=== PATIENT | female | born 1985 ===

== ENCOUNTER 2016-07-12 00:15 | Emergency (ER) | payer OTHER, MEDICAID ==
[2016-07-12 00:28] VITALS: BP 127/81; PULSE 98; RESP 20; TEMP 98.2; O2SAT 98
[2016-07-12] MEDS ORDERED: TDAP ADULT 0.5 ML INJ (BOOSTRIX) IM ONE (00:29)
--- NOTE | 2016-07-12 00:33 | EDPHY ---
H & P Smoking Status: Heavy smoker Time Seen by Provider: 07/12/16 00:26 HPI/ROS: CHIEF COMPLAINT: Right knee laceration HISTORY OF PRESENT ILLNESS: 31-year-old female with out-of-date tetanus, works at [employer], was using a box coverer hand and sustained accidental laceration to her right lateral knee. Occurred shortly prior to arrival. No paresthesia no sensory or motor deficit. PHYSICAL EXAM (Prior to examination, patient consented to physical exam, hands were washed and my usual and customary physical exam procedures followed) 1) GENERAL: Well-developed, well-nourished, alert and oriented. Appears to be in no acute distress. 2) HEAD: Normocephalic 3) HEENT: sclera anicteric 4) LUNGS: Breathing comfortably. 5) SKIN: Right lateral knee 3 cm well-demarcated superficial laceration, not involving the fascia. 6) MUSCULOSKELETAL: able to hold flexion and extension against resistance with no gross deficits. (Jovana Murray) Constitutional: Initial Vital Signs Temperature (C) 36.8 C 07/12/16 00:17 Heart Rate 98 07/12/16 00:17 Respiratory Rate 20 07/12/16 00:17 Blood Pressure 127/81 H 07/12/16 00:17 O2 Sat (%) 98 07/12/16 00:17 Allergies/Adverse Reactions: No Known Allergies Allergy (Unverified 07/12/16 00:31) MDM/Departure - MDM Procedures: Procedure: Laceration repair. I explained the indications, risks and benefits for both laceration repair and anesthetic administration. Verbal consent was obtained from the patient . The laceration on the right knee was anesthetized using 0.5% bupivicaine with epinephrine . After anesthetic administered the patient was observed for a period of time and had no apparent adverse effects. The wound was cleaned, prepped, draped in normal sterile fashion and explored to its base. No foreign body seen, no foreign bodies palpated. There were no deep structures involved. No tendon injury was identified. The wound was repaired with running suture of 4 0 Prolene. The wound repair was simple. The procedure was performed by myself. Patient has been informed that scarring will occur, although efforts have been made to minimize this. (Jovana Murray) Medications Given: Discontinued Medications Diphtheria/Tetanus/Acell Pertussis (Boostrix) 0.5 ml IM .ONCE ONE Stop: 07/12/16 00:30 Last Admin: 07/12/16 00:33 Dose: 0.5 ml ED Course/Re-evaluation: PHYSICIAN DOCUMENTATION: The patient was evaluated and managed by the Physician Absorption Plant Operator. My co- signature indicates that I have reviewed this chart and I agree with the findings and plan of care as documented. I am the secondary supervising physician. (Alicia Smyth) - Depart Disposition: Home, Routine, Self-Care Clinical Impression: Laceration of right knee Qualifiers: Encounter type: initial encounter Qualified Code(s): S81.011A - Laceration without foreign body, right knee, initial encounter Condition: Good Instructions: Care For Your Stitches (ED), Laceration (ED) Additional Instructions: Return to the ER if you develop redness, swelling, discharge, warmth to the wound, red streaks going up your leg, or any other symptoms that concern you. Stand Alone Forms: Work Excuse Referrals: Return, to the ER in 14 days for suture removal [Other] - 07/26/16
== END 2016-07-12 00:53 | disposition home or self-care (01) ==
PROC: 0HQKXZZ Repair Right Lower Leg Skin, External Approach (ICD-10-PCS; principal; 2016-07-12)
DX: S81.011A Laceration without foreign body, right knee, initial encounter (principal); F17.200 Nicotine dependence, unspecified, uncomplicated; Z23 Encounter for immunization; W27.8XXA Contact with other nonpowered hand tool, initial encounter; Y92.69 Other specified industrial and construction area as the place of occurrence of the external cause; Y99.0 Civilian activity done for income or pay; Y93.89 Activity, other specified